=== PATIENT | male | born 1960 | race Caucasian/White ===

== ENCOUNTER 2019-08-15 15:12 | Emergency (ER) | payer OTHER ==
[~2019-08-15] VITALS: Ht 182.9 cm; Wt 120.2 kg
[2019-08-15 15:15] VITALS: BP 128/87
== END 2019-08-15 16:28 | disposition left against medical advice (07) ==
LOC: EDBD 15:12 → ER 15:32 → EDBD 15:32 → ER 16:28
DX: E16.2 Hypoglycemia, unspecified (principal); Z53.21 Procedure and treatment not carried out due to patient leaving prior to being seen by health care provider

== ENCOUNTER 2022-08-30 11:18 | Emergency (ER) | payer MEDICAID, OTHER ==
[~2022-08-30] VITALS: Ht 185.4 cm; Wt 136.0 kg
[2022-08-30 12:33] VITALS: BP 125/59
[2022-08-30 14:50] LABS: Basophils # (auto) 0 10 ^3/uL (0-0.2); Basophils % (auto) 0.2 % (0.0-2.0); Eosinophils # (auto) 0.1 10 ^3/uL (0-0.8); Eosinophils % (auto) 0.7 % (0.0-7.0); Hematocrit 44.6 % (41.0-53.0); Hemoglobin 14.6 g/dL (13.5-17.5); Lymphocytes # (auto) 1.3 10 ^3/uL (0.4-5.4); Lymphocytes % (auto) 14.4 % (10.0-50.0); Mean Corpuscular Hemoglobin 29.9 pg (28.0-32.0); Mean Corpuscular Hgb Conc. 32.8 g/dL (32.0-36.0); Mean Corpuscular Volume 91.3 fL (80.0-100.0); Monocytes # (auto) 0.6 10 ^3/uL (0-1.3); Monocytes % (auto) 6.4 % (0.0-12.0); Neutrophils # (auto) 7.2 10 ^3/uL (1.6-8.6); Neutrophils % (auto) 78.3 % (37.0-80.0); Red Blood Cells 4.88 10^6/uL (4.5-5.90); Red Cell Distribution Width 14.8 % (11.8-14.3); White Blood Cell 9.2 10^3/uL (4.4-10.8)
[2022-08-30 15:05] LABS: Albumin 3.2 g/dL (3.4-5.0); Calcium 8.8 mg/dL (8.5-10.1); Potassium 4.7 mmol/L (3.5-5.1)
[2022-08-30 15:07] LABS: BUN/Creatinine Ratio 21.6
[2022-08-30 15:09] LABS: Bilirubin, Total 0.5 mg/dL (0.2-1.0)
== END 2022-08-30 17:04 | disposition left against medical advice (07) ==
LOC: ER 11:18 → EDBD 11:18 → ER 17:04
DX: E11.65 Type 2 diabetes mellitus with hyperglycemia (principal); E78.5 Hyperlipidemia, unspecified; I10 Essential (primary) hypertension; Z20.822 Contact with and (suspected) exposure to COVID-19
CPT/HCPCS: 36415; 80053; 84484; 85025; 87426

== ENCOUNTER 2023-08-24 03:39 | Inpatient (IN) | payer MEDICAID ==
[~2023-08-24] VITALS: Ht 182.9 cm; Wt 140.0 kg
[2023-08-24] VITALS (13 sets, daily range): BP systolic 115–149; BP diastolic 58–80; PULSE 16–107; RESP 14–21; TEMP 98–98.6; O2SAT 98–100
[2023-08-24] MEDS ORDERED: SOD CHL 0.45% 1,000 ML IV ONE (04:00)
[2023-08-24] MEDS ORDERED: ONDANSETRON HCL 4 MG/2 ML VIAL IV ONE (04:00)
[2023-08-24] MEDS ORDERED: FAMOTIDINE (10MG/ML) 2ML VL IV ONE (04:00)
[2023-08-24] MEDS ORDERED: SODIUM CHLORIDE 0.9% 4,200 ML IV ONE (04:15)
[2023-08-24 04:42] LABS: Chloride 110 mmol/L (98-107); Potassium 4.9 mmol/L (3.5-5.1); Sodium 138 mmol/L (136-145)
[2023-08-24 04:43] LABS: Anion Gap 8 (5-15); Basophils # (auto) 0 10 ^3/uL (0-0.2); Basophils % (auto) 0.3 % (0.0-2.0); Carbon Dioxide 20 mmol/L (20-30); Eosinophils # (auto) 0.1 10 ^3/uL (0-0.8); Eosinophils % (auto) 0.6 % (0.0-7.0); Hematocrit 27.3 % (41.0-53.0); Hemoglobin 9.2 g/dL (13.5-17.5); Lymphocytes # (auto) 2.2 10 ^3/uL (0.4-5.4); Mean Corpuscular Hemoglobin 31.3 pg (28.0-32.0); Mean Corpuscular Hgb Conc. 33.6 g/dL (32.0-36.0); Mean Corpuscular Volume 93.4 fL (80.0-100.0); Monocytes # (auto) 0.6 10 ^3/uL (0-1.3); Monocytes % (auto) 5.8 % (0.0-12.0); Neutrophils # (auto) 7.5 10 ^3/uL (1.6-8.6); Neutrophils % (auto) 72.3 % (37.0-80.0); Nucleated Red Blood Cells % 0.1 %; Red Blood Cells 2.92 10^6/uL (4.5-5.90); Red Cell Distribution Width 14.2 % (11.8-14.3); White Blood Cell 10.3 10^3/uL (4.4-10.8)
[2023-08-24 04:49] LABS: Blood Urea Nitrogen 54 mg/dL (9-23); Glucose 185 mg/dL (74-106)
[2023-08-24 05:02] LABS: Urine Bacteria FEW /hpf (None Seen); Urine Blood Negative /uL (Negative); Urine Clarity Clear (Clear); Urine Color Yellow (Yellow); Urine Mucus FEW (None Seen); Urine Protein, UAD TRACE (Negative); Urine Specific Gravity 1.031 (1.001-1.035); Urine Sperm PRESENT /hpf (None Seen); Urine Urobilinogen Normal (Negative); Urine WBC 4 /hpf (0 - 3); Urine pH 5.5 (5.0-8.0)
[2023-08-24] MEDS ORDERED: ALBUMIN 25% 100 ML IV ONE (06:00)
[2023-08-24] MEDS ORDERED: SODIUM CHLORIDE 0.9% 1,000 ML IV ONE (06:00)
[2023-08-24] MEDS ORDERED: HYDROcodone-ACET 5/325MG TAB PO PRN (07:00)
[2023-08-24] MEDS ORDERED: DEXTROSE (50%) 50ML SYRG IV PRN (07:00)
[2023-08-24] MEDS ORDERED: ONDANSETRON HCL 4 MG/2 ML VIAL IV PRN (07:00)
[2023-08-24] MEDS: SODIUM CHLORIDE 0.9% 1,000 ML IV SCH ×2 (07:00→16:23)
[2023-08-24] MEDS ORDERED: MORPHINE SULFATE INJ 2 MG/ml SYRG IV PRN (07:00)
[2023-08-24] MEDS ORDERED: LORazepam 0.5 MG TAB PO PRN (07:00)
[2023-08-24] MEDS ORDERED: ACETAMINOPHEN 325 MG TAB PO PRN (07:00)
[2023-08-24] MEDS ORDERED: DOCUSATE SOD 100 MG CAP PO PRN (07:00)
[2023-08-24] MEDS ORDERED: MAALOX PLUS or MAALOX 30 ML PO PRN (07:00)
[2023-08-24] MEDS ORDERED: NOREPINEPHRINE 8 MG/250ML KIT 250 ML IV SCH (08:00)
[2023-08-24] MEDS ORDERED: PANTOPRAZOLE 80 MG in SODIUM CHL 0.9% 100 ML IV ONE (08:00)
[2023-08-24] MEDS: InsuLIN REG 1unit/0.01ml Soln (100units/ml) SC SCH ×3 (08:00→16:00)
[2023-08-24] MEDS: ACCU-CHEK COMFORT CURVE STRIP VI SCH ×3 (08:19→16:22)
[2023-08-24 09:17] LABS: Hemoglobin 7.7 g/dL (13.5-17.5)
[2023-08-24 09:18] LABS: Hematocrit 23.6 % (41.0-53.0)
[2023-08-24] MEDS ORDERED: cefTRIAXone 1GM/50ML D5W 50 ML IV SCH (10:00)
[2023-08-24] MEDS ORDERED: PANTOPRAZOLE 40 MG/10 ML VIAL INJ IV SCH (10:00)
== END 2023-08-24 20:15 | disposition left against medical advice (07) | DRG 253 ==
LOC: EDBD 03:39 → ER 03:39 → TELE 06:54
PROVIDERS: ADMIT Hospitalist; ATTEND Hospitalist
PROC: 30233N1 Transfusion of Nonautologous Red Blood Cells into Peripheral Vein, Percutaneous Approach (ICD-10-PCS; principal; 2023-08-24)
DX: K92.2 Gastrointestinal hemorrhage, unspecified (principal); N17.0 Acute kidney failure with tubular necrosis; D62 Acute posthemorrhagic anemia; E11.22 Type 2 diabetes mellitus with diabetic chronic kidney disease; E66.01 Morbid (severe) obesity due to excess calories; Z53.29 Procedure and treatment not carried out because of patient's decision for other reasons; E78.5 Hyperlipidemia, unspecified; I12.9 Hypertensive chronic kidney disease with stage 1 through stage 4 chronic kidney disease, or unspecified chronic kidney disease; N18.32 Chronic kidney disease, stage 3b; E66.9 Obesity, unspecified; Z68.41 Body mass index [BMI] 40.0-44.9, adult
CPT/HCPCS: 36415; 71045; 74176; 80048; 80320; 81001; 82962; 85014; 85018; 85025; 86850; 86900; 86901; 86920; 87086; 93005; 96361; 96365; 96367; 96375; 96376; 99291; C9113; G0378; J2405; J3490; P9047